=== PATIENT | female | born 1985 | race African-American/Black ===

== ENCOUNTER 2019-06-30 17:14 | Emergency (ER) | payer SELFPAY ==
[~2019-06-30] VITALS: Ht 177.8 cm; Wt 99.8 kg
--- NOTE | 2019-06-30 17:17 | NUR ---
Patient [facility], accompanied by [place] [facility] and PD, transferred to bed 3. RN evaluating patient at bedside.
--- NOTE | 2019-06-30 17:20 | NUR ---
Dr. Sahu is evaluating the patient at bedside.
[2019-06-30] MEDS ORDERED: HALOPERIDOL IM 5 MG/ML VIAL ONE (17:23)
[2019-06-30] MEDS ORDERED: diphenhydrAMINE 50 MG/ML VIAL ONE (17:23)
[2019-06-30] MEDS ORDERED: LORazepam 2 MG/ML VIAL ONE (17:23)
[2019-06-30] MEDS ORDERED: LORazepam 2 MG/ML VIAL IM ONE (17:25)
[2019-06-30] MEDS ORDERED: HALOPERIDOL IM 5 MG/ML VIAL IM ONE (17:25)
[2019-06-30] MEDS ORDERED: NACL 0.9% 2,000 ML IV ONE (17:25)
[2019-06-30] MEDS ORDERED: diphenhydrAMINE 50 MG/ML VIAL IM ONE (17:25)
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
[2019-06-30 17:51] VITALS: BP 100/65
--- NOTE | 2019-06-30 18:25 | NUR ---
ua sent to lab, # 14 FR Urinary catheter inserted utilizing sterile technique. Immediate return of cl yellow ml urine noted. Urine sample collected and sent to lab. Pt tolerated procedure well.
[2019-06-30 18:50] LABS: BASOPHILS % (AUTO) 0.1 % (0.0-2.0); EOSINOPHILS # (AUTO) 0.1 K/uL (0-0.4); HEMATOCRIT 40.6 % (36-48); HEMOGLOBIN 13.2 g/dL (12.0-16.0); LYMPHOCYTES # (AUTO) 2.9 K/uL (2.5-16.5); LYMPHOCYTES % (AUTO) 40.9 % (20.5-51.1); MEAN CORPUSCULAR HEMOGLOBIN 29 pg (27-31); MEAN CORPUSCULAR HGB CONC 32 g/dL (33-37); MEAN CORPUSCULAR VOLUME 88.9 fL (80-94); MONOCYTES # (AUTO) 0.5 K/uL (0.8-1.0); MONOCYTES % (AUTO) 7.1 % (1.7-9.3); NEUTROPHILS # (AUTO) 3.6 K/uL (1.8-7.7); NEUTROPHILS % (AUTO) 49.9 % (42.2-75.2); PLATELET COUNT (AUTO) 209 K/uL (140-450); RED BLOOD CELL COUNT(AUTO) 4.56 MIL/uL (4.20-5.40); RED CELL DISTRIBUTION WIDTH 14.7 % (11.6-13.7); WHITE BLOOD COUNT (AUTO) 7.1 K/uL (4.8-10.8)
[2019-06-30 19:00] LABS: ANION GAP 19.1 (8-16); CARBON DIOXIDE 22.9 mmol/L (21-32); CREATININE 1.1 mg/dL (0.6-1.3)
[2019-06-30 19:13] LABS: ALBUMIN 3.5 g/dL (3.4-5.0); TOTAL BILIRUBIN 0.2 mg/dL (0.0-1.0)
--- NOTE | 2019-06-30 23:38 | NUR ---
PT MOVED TO CHAIR D
[2019-06-30 23:47] VITALS: BP 100/65
--- NOTE | 2019-06-30 23:47 | NUR ---
PT DISCHARGED WITH PAPERWORK. EDUCATED PT REGARDING D/C INSTRUCTIONS. PT VERBALIZED UNDERSTANDING. PT AT STABLE CONDITION. ABLE TO AMBULATE WITH STEADY GAIT. ALL QUESTIONS ANSWERED.
== END 2019-06-30 23:47 | disposition home or self-care (01) ==
LOC: MED 17:14
DX: F10.129 Alcohol abuse with intoxication, unspecified (principal)
CPT/HCPCS: 36415; 80053; 81002; 81025; 85025; 96372; 99283; C1758; G0482; J1200; J1630; J2060; J7030